=== PATIENT | female | born 1995 | race Caucasian/White ===

== ENCOUNTER → 2020-08-27 07:52 | Outpatient (CLI) | payer BC, SELFPAY ==
--- NOTE | 2020-08-27 07:54 | US_ITS ---
HISTORY: RUQ PAIN AFTER EATING X 3 MONTHS COMPARISON: None TECHNIQUE: Sonographic images of the right upper quadrant of the abdomen using grayscale and color Doppler imaging. Number of images including paperwork: 125 FINDINGS: LIVER: Unremarkable. Right lobe measures 16.8 cm. GALLBLADDER: No gallstones. No significant gallbladder wall thickening. Sonographic Mendoza's sign not elicited per the full stack software developer. BILE DUCTS: No significant biliary dilatation. CBD 1.6 mm. PANCREAS: Unremarkable visualized pancreas. Tail partially obscured by bowel gas. RIGHT KIDNEY: Unremarkable, 11.1 cm. AORTA: Unremarkable visualized portions of the aorta. INFERIOR VENA CAVA: Unremarkable visualized portions of the inferior vena cava. FREE FLUID: None detected. US/Gallbladder IMPRESSION: No acute abdominal abnormality is sonographically apparent. at 0126 Reported and signed by: Tarsha Knight MD Electronically Signed: Tarsha Knight MD at 1:26 EDT Tel , Service support ,
== END ==
PROVIDERS: PCP Nurse Practitioner; Referring Provider Nurse Practitioner; Visit Provider Nurse Practitioner
DX: R10.9 Unspecified abdominal pain (principal)
CPT/HCPCS: 76705

== ENCOUNTER → 2020-09-18 06:52 | Outpatient (CLI) | payer BC, SELFPAY ==
--- NOTE | 2020-09-18 06:54 | CT_ITS ---
STUDY: CT ABDOMEN AND PELVIS WITH CONTRAST REASON FOR EXAM: Female, 24 years old. RLQ/umbilical pain intermittently x 4 months, worse after eating. RADIATION DOSAGE (If Supplied By Facility): CTDIvol = ( 11.61 ) mGy, DLP = ( 820.70 ) mGycm TECHNIQUE: Transaxial images were obtained from the dome of the diaphragm to the symphysis pubis with oral contrast. Oral and amp; IV Readi-CAT and amp; 100mL Isovue-300 was administered. Sagittal and coronal images were reconstructed. Individualized dose optimization techniques were used for this CT. COMPARISON: None. FINDINGS: The visualized lung bases are unremarkable. The visualized portions of the heart are within normal limits. Normal liver. Normal gallbladder and extrahepatic biliary system. Normal spleen. Normal pancreas. Normal bilateral adrenal glands. Normal right kidney. Normal left kidney. Normal visualized stomach. Normal small intestine. Normal colon. The appendix is visualized and appears normal. Small lymph nodes are seen in the mesenteric fat in the right lower quadrant suggestive of a mesenteric adenitis. Normal abdominal aorta. Normal inferior vena cava. Normal retroperitoneum. Normal urinary bladder. Normal abdominal wall. Normal osseous structures. CT/Abdomen/Pelvis WITH Contrast IMPRESSION: Findings suggestive of mesenteric adenitis. Electronically Signed: Tan Clements, at 10:26 EST , Service support ,
== END ==
PROVIDERS: PCP Nurse Practitioner; Referring Provider Nurse Practitioner; Visit Provider Nurse Practitioner
DX: R10.9 Unspecified abdominal pain (principal)
CPT/HCPCS: 74177; Q9967

== ENCOUNTER → 2021-08-26 | Outpatient (CLI) | payer BC, SELFPAY | END | disposition home or self-care (01) | LOC: LABSPEC 15:43 | PROVIDERS: PCP Nurse Practitioner; Referring Provider Internal Medicine; Visit Provider Internal Medicine | DX: Z20.822 Contact with and (suspected) exposure to COVID-19 (principal) | CPT/HCPCS: 87635; U0005; U0003 ==

== ENCOUNTER → 2024-06-21 | Outpatient (CLI) | payer BC, SELFPAY ==
[2024-06-28 12:14] LABS: HPV Reflexed? NOT INDICATED
== END | disposition home or self-care (01) ==
LOC: LABSPEC 17:07
PROVIDERS: PCP Nurse Practitioner; Referring Provider Nurse Practitioner Women's Health; Visit Provider Nurse Practitioner Women's Health
DX: Z12.4 Encounter for screening for malignant neoplasm of cervix (principal)
CPT/HCPCS: 88175; G0145

== ENCOUNTER → 2025-09-07 | Outpatient (CLI) | payer BC, SELFPAY ==
[2025-09-07 13:21] LABS: hCG Titer Quant., Serum 22340 mIU/mL (<9 non-preg)
[2025-09-08 22:07] LABS: Chlamydia By Nucleic Acid AMP Negative (Negative); Gonococcus By Nucleic Acid AMP Negative (Negative)
== END | disposition home or self-care (01) ==
PROVIDERS: Advanced Practice Midwife; Visit Provider Obstetrics & Gynecology
DX: O20.0 Threatened abortion (principal); O09.90 Supervision of high risk pregnancy, unspecified, unspecified trimester; Z3A.00 Weeks of gestation of pregnancy not specified
CPT/HCPCS: 36415; 84702; 86850; 86900; 86901; 87491; 87591

== ENCOUNTER → 2025-09-09 | Outpatient (CLI) | payer BC, SELFPAY ==
--- OUTSIDE RECORDS SUMMARY | 2025-09-09 10:54 | XMS RPT_ITS | CCD ---
Author Organization [facility] Care Team Providers Care Psychiatrist Name Role Phone NO PCP Unavailable Unavailable Nancy Valerio Unavailable Manav Warner Unavailable Unavailable Unavailable Unavailable Nancy Valerio CNP Unavailable Manav Warner LPN Unavailable Unavailable TARIK Luke LPN Unavailable Unavailable Unavailable Unavailable Nancy Valerio Unavailable Dr. Saqib King Unavailable [phone] Slahandy MARTINN, Mary Carmen Unavailable Unavailable Frank SHERMAN Yue Unavailable Frank SHERMAN Yue Unavailable Rashaun Crowe MD Primary Care Provider Elmira White Attending Unavailabl brittani Chanel NP, Adriana Attending Unavailable Elmira White Attending UnavailElmira Oconnor Attending Unavailabl e Allergies Allergy Classification Reported Allergen(s) Allergy Type Date of Onset Reaction(s) Facility (12 sources) Codeine/Codeine Derivatives; Translations: [Codeine/Codein e Derivatives] Allergy to substance (finding) Vomiting [facility] Work Phone: (1 source) Codeine Drug Allergy 3 Vomiting [facility] Work Phone: (1 source) Codeine Drug Allergy 5 [facility] Repository Medications Completed/Discontinued Medications Medication Drug Class(es) Dates Sig (Normalized) Sig (Original) benzoyl peroxide 0.05 mg/mg / clindamycin 0.01 mg/mg topical gel (1 source) Lincosamide Antibacterial Start: 07-06-2019 End: 07-10-2022 clindamycin-benzoy l peroxide 1-5 % glwp APPLY TO AFFECTED AREAS.USE ON ACNE PRONE AREAS TWICE DAILY. 50 mL 5 07/06/2019 07/10/2022 Discontinued (Other) Comment on above: APPLY TO AFFECTED AR EAS.USE ON ACNE PRONE AREAS TWICE DAILY. Ethinyl Estradiol / Ferrous fumarate / Norethindrone (14 sources) Estrogen Start: 07-10-2022 Norethindron-Ethin yl Estrad-Fe (TILIA FE) 1-20(5)/1-30(7) /1mg-35mcg (9) Take 1 tablet by mouth once daily. 84 tablet 4 07/10/2022 Active Start: 07-05-2021 End: 07-10-2022 Norethindron-Ethinyl Estrad- Fe (TILIA FE) 1-20(5)/1-30(7) /1mg-35mcg (9) Take 1 tablet by mouth once daily. 3 Package 4 07/05/2021 07/10/2022 Discontinued Start: 08-21-2020 take 1 tablet by emelyn th once daily Tri-Legest Fe 1-20/1-30/1-35 MG-MCG Oral Tablet 1 (one) Tablet daily for 0 days Quantity: 30 {Tablet} Refills: 0 Ordered: 21-Aug-2020 Iman Nancy Iman Nancy Start : 21-Aug-2020 Active Start: 08-21-2020 take 1 tablet by emelyn th once daily Tri-Legest Fe 1-20/1-30/1-35 MG-MCG Oral Tablet 1 (one) Tablet daily for 0 days Quantity: 30 {Tablet} Refills: 0 Ordered: 21-Aug-2020 Nancy Valerio CNP, CNP Candice Start : 21-Aug-2020 Active Comment on above: Take 1 tablet by emelyn th once daily. ibuprofen 200 mg oral tablet (6 sources) Nonsteroidal Anti-inflammatory Drug Start: 09-19-2020 End: 09-26-2020 take 1 tablet by mouth twice daily Advil 200 MG Oral Tablet 1 (one) Tablet bid for 7 days Refills: 0 Ordered: 28-Sep-2020 Nancy Valerio Mary Start : 19-Sep-2020 End : 26-Sep-2020 Inactive Start: 11-25-2018 take 1 tablet by emelyn th every six hours as needed ibuprofen (MOTRIN) 400 mg tablet Take 1 tablet by mouth every 6 hours as needed for Pain. 60 tablet 1 11/25/2018 Active Comment on above: Take 1 tablet by emelyn th every 6 hours as needed for Pain. Problems Active Problems Problem Classification Problem Date Documented Da te Episodic/Chronic Abdominal pain (20 sources) Abdominal pain; Translations: [Abdominal pain] Resolved: 05-21-2022 08-21-2020 Episodic Comment on above: GB US normal, tried gluten free without change, stil with abd pain worse before a meal rt and left lower quad will rule out divertic and appendicitis Contraceptive and procreative management (5 sources) Patient encounter status; Translations: [Family planning] 09-19-2020 Episodic Hemorrhage during ; abruptio placenta; placenta previa (2 sources) Threatened ; Translations: [Threatened ] Onset: 09-07-2025 Episodic Hemorrhoids (8 sources) Hemorrhoids; Translations: [Hemorrhoid] 09-11-2020 Episodic Comment on above: saw SCHO[employer] MECHANIC at [facility] Immunizations and screening for infectious disease (13 sources) Contact with and (suspected) exposure to other viral communicable diseases; Translations: [Contact with or exposure to other viral diseases] Resolved: 05-21-2022 09-19-2020 Episodic Comment on above: future sister in law tested positive Sep 15 and Sep 1 Lymphadenitis (5 sources) Mesenteric lymphadenitis; Translations: [Mesenteric adenitis] 09-19-2020 Episodic Comment on above: pain after eating an d with stress since May x 4 month, Other complications of (1 source) Supervision of high risk , unspecified, unspecified trimester; Translations: [Supervision of high risk , unspecified, unspecified trimester] Onset: 09-07-2025 Episodic Other nutritional; endocrine; and metabolic disorders (20 sources) Body mass index 30+ - obesity; Translations: [BMI 30.0-30.9,adult] Resolved: 05-21-2022 08-21-2020 Chronic Residual codes; unclassified (7 sources) Non-smoker; Translations: [Nonsmoker] 09-19-2020 Episodic Past or Other Problems Problem Classification Problem Date Documented Da te Episodic/Chronic Unclassified (20 sources) Unclassified (20 sources) Patient encounter status; Translations: [Family planning] 08-21-2020 Unclassified (20 sources) Non-smoker; Translations: [Nonsmoker] 08-21-2020 Unclassified (20 sources) BMI 30.0-30.9,adult Unclassified (8 sources) Hemorrhoid Unclassified (5 sources) Mesenteric adenitis Unclassified (5 sources) Exposure to SARS virus Unclassified (4 sources) Exposure to COVID-19 virus Unclassified (3 sources) Well woman exam (Renamed from Encounter for well woman exam) NEGATED: Highlighted row has been ruled out!Unclassified (12 sources) Problem Onset: 08-21-2020 08-21-2020 Results Test Name Value Interpretation Reference Range Facility Eye Surgeon Office Visit Reporton 09-07-2025 Eye Surgeon Office Visit Report [facility]'s [address], [address] [place] [address] OFFICE VISIT Date of Service: 09/07/25 MR#: [id number] Acct: [id number] Name: ALYSSA RODRIGUEZ Rep #: [id number] : 1995 Provider: Dr. Elmira Huynh DO Age/Sex: 29/F Location: [facility] Status: Signed Intake Vital Signs 09/05/25 09:03 09/07/25 08:22 Height 5 ft 5 in 5 ft 5 in Weight: 175 lb 5 oz BMI 29.1 BP 120/84 H Blood Pressure Location Rt brachial Position Sitting Intake Visit Reasons: spotting in early /JV Furnace Helper Required: No Is patient in pain?: No Allergies codeine Adverse Reaction (Intermediate, Verified 09/07/25 08:23) VOMITING Medications ???Medication ???Instructions ???Recorded ???Confirmed ???Type multivit-min no.71-iron fum 28 cap PO 09/05/25 09/07/25 History mg-folate no.1 1 mg-dha 300 mg capsule (PNV-[place]) Post menopausal: No Patient : No : No PFSH Medical History Seasonal allergies Uncontrolled hypertension Chest pain, atypical Chest pain Hemorrhoids Surgical History S/P wisdom tooth extraction Family History Maternal Grandmother Myocardial infarction, Onset Age: 78 Hypertension Maternal Grandfather Kidney disease Hypertension Grandfather Heart disease, Onset Age: 89 Paternal-CHF Hypertension Paternal Grandmother Heart disease, Onset Age: 94 Paternal- CHF Hypertension Paternal Father Heart disease SVT Thyroid disorder hypothyroidism Hypertension Brother Hypertension Social History adopted: No household members: spouse housing: house number of children: 0 current occupational status: employed current occupation: Registered Nurse- [employer] current occupational exposures/hazards: No pets and animals: Yes pets and animals: dog(s) history of recent travel: No sexually active: Yes Smoking Status: Never smoker second hand exposure: No alcohol intake: current alcohol intake frequency: holidays/special occasions only Alcohol type: beer details: Not while substance use type: does not use well-balanced diet: daily or most days caffeine: Yes Type: coffee Number of servings: 1 eating out: 1-3 times/week during the past year weight has: decreased > 10 lbs what type of physical activity do you participate in: walking, yoga and other details: pilates frequency: daily duration: 30-45 minutes/day neena/sabianism: Presybeterian seatbelt use: always do you feel safe at home: Yes additional social history: - Asad- Alfonso- Marketing HPI spotting in early /JV Details: ALYSSA RODRIGUEZ is a 29 year old who presents for bleeding in early . Her last period was july 07 but she did not get a positive test until 1 week after her missed period. She denies cramping, only dark brown discharge. History 1 Elective abortions Hx Para 0 Spontaneous abortions Hx # Term Pregnancies Ectopic pregnancies Hx # Pregnancies Multiple births # of living children ROS Const ROS Unobtainable: All systems reviewed are unremarkable except as noted in H Resp Resp: Reports system reviewed and no additional complaints, except as documented; Denies cough GI GI: Reports as per HPI Psych Psych: Reports system reviewed and no additional complaints, except as documented Exam Const General: cooperative, healthy appearing, comfortable and no acute distress Resp Effort Inspection: normal respiratory effort General: bimanual renal exam normal bilaterally External Female Exam: normal appearance of the urethra Urethra: normal appearance of the urethra Speculum Exam - Vagina: normal appearance of the vagina Speculum Exam - Cervix: normal appearance of the cervix Bimanual Exam- Adnexa, other: normal adnexae and normal Pelvic Support: normal Other: scant brown discharge present. ultrasound shows a 6 week 1-5 day CRL with heart tones 125 Skin General: no rashes or lesions noted Psych Appearance: grossly normal Speech and Movement: speech and movement normal Coding Level of Care Code Off vis,new,level 4 Diagnoses Threatened O20.0 Assessment and Plan Assessment and Plan (1) Threatened : Status: Acute Plan: plan for serial quants and repeat ultrasound in one week. Orders: Orders hCG Titer Quant., Serum 1 Week O20.0 - Threatened hCG Titer Quant., Serum Today O20.0 - Threatened 09/07/25 0849 Date Elmira Gerber (more content not included)... Normal [facility] Type AND Screenon 09-07-2025 Ab SCREEN GEL Negative Normal [facility] Comment on above: Order Comment: PN Performed By: #### B TS #### [facility] [address] [place], [place], [address] hCG Titer Quant., Serumon HCG QUANT. 06633 mIU/mL High <9 non-preg [facility] Comment on above: Result Comment: Gest ational Age 0.2-1 Week: 5-50 mIU/mL 1-2 Weeks: 50-500 mIU/mL 2-3 Weeks: 100-5000 mIU/mL 3-4 Weeks: 500-10,000 mIU/mL 4-5 Weeks:1000-50,000 mIU/mL 5-6 Weeks: 10,000-100,000 mIU/mL 6-8 Weeks: 15,000-200,000 mIU/mL 2-3 Months:10,000-100,000 mIU/mL Performed By: #### L 700.8000 #### [facility] [address] [place], [address] Office Visit Reporton 2024 Office Visit Report [facility] [address] [place] [address] OFFICE VISIT Date of Service: 09/05/25 MR#: [id number] Acct: [id number] Patient: ALYSSA RODRIGUEZ Rep #: [id number] : 1995 Provider: Dr. Elmira Huynh, Age/Sex: 29/F Location: [facility] Status: Signed Intake Vital Signs 08/21/25 13:08 09/05/25 09:03 Height 5 ft 5 in 5 ft 5 in Blood Pressure Location Rt brachial Position Sitting Intake Visit Reasons: PNOB Vitals Education Furnace Helper Required: No Accompanied by: Is patient in pain?: No Allergies codeine Adverse Reaction (Intermediate, Verified 09/07/25 08:23) VOMITING Medications ???Medication ???Instructions ???Recorded ???Confirmed ???Type multivit-min no.71-iron fum 28 cap PO 09/05/25 09/07/25 History mg-folate no.1 1 mg-dha 300 mg capsule (PNV-[place]) Is last menstrual period known: Yes Last menstrual period: 07/07/25 Post menopausal: No Patient : Yes Nurse's Note: Pt here for secondary amenorrhea. Vitals WNL. PNOB questions completed. Problem list, allergies, and medications updated. First trimester ACOG education completed. Assessment and Plan Assessment and Plan Orders: Orders CBC W/Diff, Automated 09/05/25 O09.90 - Supervision of high risk , unspecified, unspecified trimester Type Screen Today O09.90 - Supervision of high risk , unspecified, unspecified trimester Rubella IgG 09/05/25 O09.90 - Supervision of high risk , unspecified, unspecified trimester Hepatitis C Antibody 09/05/25 O09.90 - Supervision of high risk , unspecified, unspecified trimester Hepatitis B Surface Antigen 09/05/25 O09.90 - Supervision of high risk , unspecified, unspecified trimester Culture, Urine 09/05/25 O09.90 - Supervision of high risk , unspecified, unspecified trimester Syphilis Antibodies 09/05/25 O09.90 - Supervision of high risk , unspecified, unspecified trimester Chlamydia/GC TERRENCE aptima Today O09.90 - Supervision of high risk , unspecified, unspecified trimester HIV 09/05/25 O09.90 - Supervision of high risk , unspecified, unspecified trimester DANIEL 09/05/25 O09.90 - Supervision of high risk , unspecified, unspecified trimester 09/07/25 1236 Date Elmira White DO [facility] Signature: Date (if applicable) [facility]: [facility] ([facility] ) ALYSSA DAMON ([id number]) 1995 F Date Time Provider Department 07/10/22 4:00 PM ORLY YIN During your visit today, we recorded the following information about you: Blood pressure Weight Height 122/78 86.2 kg 1.638 m Orly Yin APRN.LANE 07/10/2022 4:36 PM Signed Alyssa is a 26 year old who presents for an annual gynecologic exam without complaints. Menses: cycles every 21 days and 3-4 days of flow. 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 LMP: 06/27/2021, Drug Induced Amenorrhea Age at Menarche: Age at First : Age at Menopause: Artists' Model History Comments: Sexual Activity: Yes; Male Contraception: Pill PAST MEDICAL HISTORY Diagnosis Date Menarche age 13 PMH - PAST MEDICAL HISTORY OF 08/09/2009 normal color vision PAST SURGICAL HISTORY Procedure Laterality Date TOOTH EXTRACTION 2014 WISDOM TEETH FAMILY HISTORY Problem Relation Age of Onset Allergies Mother Allergies Father other (irregular heart) Father No Known Problems Sister No Known Problems Brother No Known Problems Brother Hypertension Maternal Grandmother Diabetes Maternal Grandfather adult onset Hypertension Paternal Grandmother Hypertension Paternal Grandfather SOCIAL HISTORY Social History Tobacco Use Smoking status: Never Smokeless tobacco: Never Vaping Use Vaping Use: Never used Substance Use Topics Alcohol use: No Drug use: No REVIEW OF SYSTEMS Abdomen: No abdominal pain, nausea, vomiting, diarrhea, or constipation. No bloating, early satiety, indigestion, or increased flatulence. Bladder: No dysuria, gross hematuria, urinary frequency, urinary urgency, or incontinence. Breast: No breast lumps, nipple d/c, overlying skin changes, redness or skin retraction. Allergies and current medication updated:Yes EXAM: LMP 06/27/2021 GENERAL: pleasant, female in no apparent distress HEENT: Normocephalic, atraumatic, mucus membranes moist, and no lesions NECK: Supple, full range of motion, no adenopathy, and thyroid normal DERMATOLOGY: Normal, without lesions, non-icteric, and non-hirsute BREAST: soft, non-tender, symmetric, no dominant mass, normal nipple-areolar complex, no lymphadenopathy, and no nipple discharge CHEST: Normal inspiratory effort ABDOMEN: soft, non-tender, and no masses PELVIC: external genitalia normal, normal Bartholin's glands, urethra, Delmita's glands, no vulvar lesions, no cervical lesions, good vaginal support, physiologic discharge present, normal appearing perineal body and perianal region BIMANUAL: uterus normal size, shape and consistency, no adnexal masses, and non-tender RECTOVAGINAL: deferred. NEURO: alert and oriented x3,exam grossly non-focal EXTREMITIES: normal ASSESSMENT/PLAN: 1) Health maintenance: Pap/HPV up to date. Mammogram starting age 40. Nutrition, exercise and routine health maintenance exams reviewed. 2) Contraception: combined hormonal contraceptives. Contraceptive options reviewed and information provided. 3) STD screening: Declined STD check. 4) Follow up one year or sooner as needed Orly Yin APRN.LANE Referring Provider: SELF [200] Allergies As of Date: 07/10/2022 Noted Allergy Reaction CODEINE 10/24/2013 11 - Vomiting Date Reviewed: 07/10/2022 Reviewed by: Orly Yin APRN.SENIOR PHYSICIAN - Fully Assessed Reason for Visit: Artists' Model Exam [50] Primary Visit Diagnosis:Encounter for gynecological examination (general) (routine) without abnormal findings [Z01.419] Other Visit Diagnosis:Encounter for surveillance of contraceptive pills [Z30.41] Order(s):Norethindron-E thinyl Estrad-Fe (TILIA FE) 1-20(5)/1-30(7) /1mg-35mcg (9)Take 1 tablet by mouth once daily.Disp: 84 tabletRfl: 4 Prescriptions as of 07/10/2022 - Norethindron-Ethinyl Estrad-Fe (TILIA FE) 1-20(5)/1-30(7) /1mg-35mcg (9) Take 1 tablet by mouth once daily. - ibuprofen (MOTRIN) 400 mg tablet Take 1 tablet by mouth every 6 hours as needed for Pain. Problem List As Of Date: 07/10/2022 (None) Prescriptions ordered this encounter Disp Refills Start End NORETHINDRONE-ETH. ESTRADIOL-IRON 1-* 84 t* 4 07/10/2022 Route: ORAL Sig: Take 1 tablet by mouth once daily. Medications Discontinued During This Encounter Prescriptions - Norethindron-Ethinyl Estrad-Fe (TILIA FE) 1-20(5)/1-30(7) /1mg-35mcg (9) (Discontinued) Take 1 tablet by mouth once daily. - clindamycin-benzoyl peroxide 1-5 % glwp (Discontinued) No sig reported Disposition: Return in 1 year (on 07/10/2023) for Annual Exam. Follow-up and Disposition History fo (more content not included)... Normal [facility] SARS-CoV-2 (COVID-19) RT-PCR on 04-23-2022 SARS-CoV-2 (COVID-19) RNA TERRENCE+probe Ql (Unsp spec) Positive Abnormal [facility] Comment on above: Result Comment: POSI TIVE: SARS-CoV-2 RNA was detected - Interpretation: A positive result indicates severe acute respiratory syndrome coronavirus 2 (SARS-CoV-2) RNA is present. Clinical correlation with patient history and other diagnostic information is necessary to determine patient infection status. Positive results do not rule out bacterial infection or co-infection with other viruses. - Method: Real-time reverse transcriptase PCR amplification for the qualitative detection of the ORF1 a/b non-structural region that is unique to SARS-CoV-2 and a conserved region in the structural protein envelope E-gene for gonzalez-Sarbecovirus detection using the Jorge SARS-CoV-2 assay on the Zoraida Jorge Hövding0 System. - Comment: This test has received FDA Emergency Use Authorization (EUA) and has been verified by [facility]. This test is only authorized for the duration of the public health emergency declaration and the circumstances that exist to justify the authorization of the emergency use of in vitro diagnostic tests for the detection of SARS-CoV-2 virus and/or diagnosis of COVID-19 infection under section 564(b)(1) of the Act, 21 U.S.C. 360bbb-3(b)(1), unless the authorization is terminated or revoked sooner. This test has not been FDA cleared or approved. Results should be used in conjunction with clinical findings, and should not form the sole basis for a diagnosis or treatment decision. - Fact Sheets for this EUA can be found at the following links: For Healthcare Providers: www.fda.gov/media/321049/download For Patients: www.fda.gov/media/006318/download - Reference Value: Negative Performed By: #### C OVID #### [address] [id number] JORGE SARS CoV-2 RT PCR Detected Normal [facility] Comment on above: Performed By: #### C OVID #### [address] [id number] FECAL OCCULT- Tubes sent jaswinder e ([id number])on 09-11-2020 Hemoglobin.gastro intestinal Ql (Stl) Negative Normal [facility] Work Phone: Hemoglobin.gastro intestinal Ql (Stl) Negative Normal [facility]; [facility] Work Phone: CBC, Platelets & Auto Diff ( [phone])Ordered By: Microcomputer Support Specialist on 08-21-2020 Basophils (Bld) [#/Vol] 0.1 {x10E3/uL} Normal 0.0-0.2 [facility] Work Phone: Comment on above: PATIENT NOT FASTINGP ERFORMED BY: CB [facility] [id number] [place] [id number] Basophils (Bld) [#/Vol] 0.1 10*3/uL Normal 0.0-0.2 [facility]; [facility] Work Phone: Comment on above: PATIENT NOT FASTINGP ERFORMED BY: CB [facility] [id number]Dublin [place] [id number] Basophils/100 WBC (Bld) 1 % Normal [facility] Work Phone: Comment on above: PATIENT NOT FASTINGP ERFORMED BY: CB [facility] [id number] [place] [id number] Eosinophils (Bld) [#/Vol] 0.2 {x10E3/uL} Normal 0.0-0.4 [facility] Work Phone: Comment on above: PATIENT NOT FASTINGP ERFORMED BY: CB [facility] [id number] [place] [id number] Eosinophils (Bld) [#/Vol] 0.2 10*3/uL Normal 0.0-0.4 [facility]; [facility] Work Phone: Comment on above: PATIENT NOT FASTINGP ERFORMED BY: CB [facility] [id number] [place] [id number] Eosinophils/100 WBC (Bld) 2 % Normal [facility] Work Phone: Comment on above: PATIENT NOT FASTINGP ERFORMED BY: CB [facility] [id number] [place] [id number] Erythrocyte distribution width (RBC) [Ratio] 11.8 % Normal 11.7-15.4 [facility] Work Phone: Comment on above: PATIENT NOT FASTINGP ERFORMED BY: LINNETTE LabConubia HawkinsVuwkon8[address]bl[address] [place] [id number] Hematocrit (Bld) [Volume fraction] 40.7 % Normal 34.0-46.6 [facility] Work Phone: Comment on above: PATIENT NOT FASTINGP ERFORMED BY: CB [facility] Lepyee7[address]bl[address] [place] [id number] Hemoglobin (Bld) [Mass/Vol] 13.7 g/dL Normal 11.1-15.9 [facility] Work Phone: Comment on above: PATIENT NOT FASTINGP ERFORMED BY: LINNETTE [facility] Ogkvdi8[address]Duin [place] [id number] Immature granulocytes (Bld) [#/Vol] 0.1 {x10E3/uL} Normal 0.0-0.1 [facility] Work Phone: Comment on above: PATIENT NOT FASTINGP ERFORMED BY: [facility] Yibnwb06[address]Duin [place] [id number] Immature granulocytes (Bld) [#/Vol] 0.1 10*3/uL Normal 0.0-0.1 [facility]; [facility] Work Phone: Comment on above: PATIENT NOT FASTINGP ERFORMED BY: CB [facility] Aqmnyh98[address] RoadDorothea Dix Hospitalin [place] [id number] Immature granulocytes/100 WBC (Bld) 1 % Normal [facility] Work Phone: Comment on above: PATIENT NOT FASTINGP ERFORMED BY: CB [facility] Lfexjw99[address]Dublin [place] [id number] Lymphocytes (Bld) [#/Vol] 3.0 {x10E3/uL} Normal 0.7-3.1 [facility] Work Phone: Comment on above: PATIENT NOT FASTINGP ERFORMED BY: CB [facility] Osxlxg1276 [address] [place] [id number] Lymphocytes (Bld) [#/Vol] 3.0 10*3/uL Normal 0.7-3.1 [facility]; [facility] Work Phone: Comment on above: PATIENT NOT FASTINGP ERFORMED BY: LINNETTE [facility] Bkftvd89[address] [place] [id number] Lymphocytes/100 WBC (Bld) 33 % Normal [facility] Work Phone: Comment on above: PATIENT NOT FASTINGP ERFORMED BY: CB [facility] Bedfty7657 [address]Dublin [place] [id number] MCH (RBC) [Entitic mass] 28.8 pg Normal 26.6-33.0 [facility] Work Phone: Comment on above: PATIENT NOT FASTINGP ERFORMED BY: [facility] Gwxtxd[address] [facility] [place] [id number] MCHC (RBC) [Mass/Vol] 33.7 g/dL Normal 31.5-35.7 [facility] Work Phone: Comment on above: PATIENT NOT FASTINGP ERFORMED BY: [facility] Yorers8400 [address]Dublin [place] [id number] MCV (RBC) [Entitic vol] 86 fL Normal 79-97 [facility] Work Phone: Comment on above: PATIENT NOT FASTINGP ERFORMED BY: [facility] Ijltry7648 [address] RoadDublin [place] [id number] Monocytes (Bld) [#/Vol] 0.6 {x10E3/uL} Normal 0.1-0.9 [facility] Work Phone: Comment on above: PATIENT NOT FASTINGP ERFORMED BY: CB [facility] Hnooqy2504 [address] RoadDublin [place] [id number] Monocytes (Bld) [#/Vol] 0.6 10*3/uL Normal 0.1-0.9 [facility]; [facility] Work Phone: Comment on above: PATIENT NOT FASTINGP ERFORMED BY: [facility] Iefsib7378 [address]Dublin [place] [id number] Monocytes/100 WBC (Bld) 7 % Normal [facility] Work Phone: Comment on above: PATIENT NOT FASTINGP ERFORMED BY: CB [facility] Jzevxx8888 [address] RoadDublin [place] [id number] Neutrophils (Bld) [#/Vol] 5.3 {x10E3/uL} Normal 1.4-7.0 [facility] Work Phone: Comment on above: PATIENT NOT FASTINGP ERFORMED BY: CB [facility] Druhvi9760 [address]Dublin [place] [id number] Neutrophils (Bld) [#/Vol] 5.3 10*3/uL Normal 1.4-7.0 [facility]; [facility] Work Phone: Comment on above: PATIENT NOT FASTINGP ERFORMED BY: CB [facility] Cctbcf8362 [address]Dublin [place] [id number] Neutrophils/100 WBC (Bld) 56 % Normal [facility] Work Phone: Comment on above: PATIENT NOT FASTINGP ERFORMED BY: CB [facility] Kdrewb0887 [address]Dublin [place] [id number] Platelets (Bld) [#/Vol] 376 {x10E3/uL} Normal 150-450 [facility] Work Phone: Comment on above: PATIENT NOT FASTINGP ERFORMED BY: CB [facility] Vcjdcu4250 [address]Dublin [place] [id number] Platelets (Bld) [#/Vol] 376 10*3/uL Normal 150-450 [facility]; [facility] Work Phone: Comment on above: PATIENT NOT FASTINGP ERFORMED BY: CB [facility] Adafbq4223 [address] RoadDublin [place] [id number] RBC (Bld) [#/Vol] 4.76 {x10E6/uL} Normal 3.77-5.28 [facility] Internal Medicine Work Phone: Comment on above: PATIENT NOT FASTINGP ERFORMED BY: CB [facility] Wuvfme2473 [address]Dublin [place] [id number] RBC (Bld) [#/Vol] 4.76 10*6/uL Normal 3.77-5.28 [facility]; [facility] Work Phone: Comment on above: PATIENT NOT FASTINGP ERFORMED BY: CB [facility] Boupkm6000 [address]Dublin [place] [id number] WBC (Bld) [#/Vol] 9.2 {x10E3/uL} Normal 3.4-10.8 [facility] Internal Medicine Work Phone: Comment on above: PATIENT NOT FASTINGP ERFORMED BY: CB [facility] Walhdx4622 [address]Dublin [place] [id number] WBC (Bld) [#/Vol] 9.2 10*3/uL Normal 3.4-10.8 [facility] Internal [facility]; [facility] Work Phone: Comment on above: PATIENT NOT FASTINGP ERFORMED BY: CB [facility] Ckpxlv7916 [address] Roadblin [place] [id number] Metabolic Panel, Comprehensi ve ([id number])Ordered By: Microcomputer Support Specialist on 08-21-2020 Albumin [Mass/Vol] 4.3 g/dL Normal 3.9-5.0 [facility] Internal Medicine Work Phone: Comment on above: PATIENT NOT FASTINGP ERFORMED BY: CB [facility] Osesni5838 [address] RoadDublin [place] [id number] Albumin/Globulin [Mass ratio] 1.4 {ratio} Normal 1.2-2.2 [facility] Work Phone: Comment on above: PATIENT NOT FASTINGP ERFORMED BY: CB [facility] Aseifz5198 [address] RoadDublin [place] [id number] ALP [Catalytic activity/Vol] 100 [iU]/L Normal 39-117 [facility] Work Phone: Comment on above: PATIENT NOT FASTINGP ERFORMED BY: CB [facility] Ubhwej8968 [address] RoadDublin [place] [id number] ALP [Catalytic activity/Vol] 100 U/L Normal 39-117 [facility]; [facility] Work Phone: Comment on above: PATIENT NOT FASTINGP ERFORMED BY: LINNETTE [facility] Gcfpfm3759 [address] RoadDublin [place] [id number] ALT [Catalytic activity/Vol] 16 [iU]/L Normal 0-32 [facility] Work Phone: Comment on above: PATIENT NOT FASTINGP ERFORMED BY: CB [facility] Gwfpun7267 [address]Dublin [place] [id number] ALT [Catalytic activity/Vol] 16 U/L Normal 0-32 [facility]; [facility] Work Phone: Comment on above: PATIENT NOT FASTINGP ERFORMED BY: CB [facility] Gfousf0098 [address] RoadDublin [place] [id number] AST [Catalytic activity/Vol] 18 [iU]/L Normal 0-40 [facility] Work Phone: Comment on above: PATIENT NOT FASTINGP ERFORMED BY: LINNETTE [facility] Rtsitk6106 [address] RoadDublin [place] [id number] AST [Catalytic activity/Vol] 18 U/L Normal 0-40 [facility]; [facility] Work Phone: Comment on above: PATIENT NOT FASTINGP ERFORMED BY: LINNETTE [facility] Jlvmrk9914 [address]Dublin [place] [id number] Bilirubin [Mass/Vol] 0.3 mg/dL Normal 0.0-1.2 [facility] Work Phone: Comment on above: PATIENT NOT FASTINGP ERFORMED BY: CB [facility] Futpzd4960 [address] RoadDublin [place] [id number] Calcium [Mass/Vol] 9.7 mg/dL Normal 8.7-10.2 [facility] Work Phone: Comment on above: PATIENT NOT FASTINGP ERFORMED BY: LINNETTE [facility] Oonohk0658 [address] RoadDublin [place] [id number] Chloride [Moles/Vol] 98 mmol/L Normal 96-106 [facility] Work Phone: Comment on above: PATIENT NOT FASTINGP ERFORMED BY: CB [facility] Gdqtzw1135 [address] RoadDublin [place] [id number] CO2 [Moles/Vol] 22 mmol/L Normal 20-29 [facility] Internal Medicine Work Phone: Comment on above: PATIENT NOT FASTINGP ERFORMED BY: [facility] [facility] [id number] Creatinine [Mass/Vol] 0.71 mg/dL Normal 0.57-1.00 [facility] Work Phone: Comment on above: PATIENT NOT FASTINGP ERFORMED BY: [facility]Co[facility] HospitalUsmmzb45[address] [facility] [id number] GFR/1.73 sq M predicted among blacks CKD-EPI (S/P/Bld) [Vol rate/Area] 139 mL/min/1.73 Normal [facility] Work Phone: Comment on above: PATIENT NOT FASTINGP ERFORMED BY: [facility] [id number] GFR/1.73 sq M predicted among non-blacks CKD-EPI (S/P/Bld) [Vol rate/Area] 120 mL/min/1.73 Normal [facility] Work Phone: Comment on above: PATIENT NOT FASTINGP ERFORMED BY: [facility] [id number] Globulin (S) [Mass/Vol] 3.1 g/dL Normal 1.5-4.5 [facility] Work Phone: Comment on above: PATIENT NOT FASTINGP ERFORMED BY: [facility] [id number] Glucose [Mass/Vol] 89 mg/dL Normal 65-99 [facility] Work Phone: Comment on above: PATIENT NOT FASTINGP ERFORMED BY: [facility] [id number] Potassium [Moles/Vol] 4.7 mmol/L Normal 3.5-5.2 [facility] Work Phone: Comment on above: PATIENT NOT FASTINGP ERFORMED BY: CB [facility] Ialgot5377 [address] RoadDublin [place] [id number] Protein [Mass/Vol] 7.4 g/dL Normal 6.0-8.5 [facility] Work Phone: Comment on above: PATIENT NOT FASTINGP ERFORMED BY: CB [facility] Dqppio3802 [address] [place] [id number] Sodium [Moles/Vol] 137 mmol/L Normal 134-144 [facility] Work Phone: Comment on above: PATIENT NOT FASTINGP ERFORMED BY: CB [facility] Zopqlr1885 [address] RoadD[address] [place] [id number] Urea nitrogen [Mass/Vol] 9 mg/dL Normal 6-20 [facility] Work Phone: Comment on above: PATIENT NOT FASTINGP ERFORMED BY: CB [facility] Skcxzi8237 [address] RoadDublin [place] [id number] Urea nitrogen/Creatini ne [Mass ratio] 13 mg/mg Normal 9-23 [facility] Work Phone: Comment on above: PATIENT NOT FASTINGP ERFORMED BY: CB [facility] Kvnref1951 [address] [place] [id number] Urinalysis, Office ([id number])Or dered By: Manav Warner on 08-21-2020 Bilirubin Ql (U) Negative Normal Comprehe nsive [facility] Work Phone: Bilirubin Ql (U) Negative Normal Compre[facility] ns[facility]; [facility] Work Phone: Glucose Test strip (U) [Mass/Vol] Negative Normal [facility] Work Phone: Glucose Test strip (U) [Mass/Vol] Negative Normal [facility]; [facility] Work Phone: Hemoglobin Ql (U) Negative Normal Compreh ensive [facility] Work Phone: Hemoglobin Ql (U) Negative Normal Compreh ensive [facility]; [facility] Work Phone: Ketones Ql (U) Negative Normal Comprehens tamara [facility] Work Phone: Ketones Ql (U) Negative Normal Comprehens [facility]; [facility] Work Phone: Leukocyte esterase Test strip Ql (U) Trace Normal [facility] Work Phone: Nitrite Ql (U) Negative Normal Comprehens [facility] Work Phone: Nitrite Ql (U) Negative Normal Comprehens [facility]; [facility] Work Phone: pH (U) 6 [pH] Abnormal [facility] Work Phone: Protein Ql (U) Negative Normal Comprehens [facility] Work Phone: Protein Ql (U) Negative Normal Comprehens [facility]; [facility] Work Phone: Specific gravity (U) [Rel density] 1.020 1 Normal [facility] Work Phone: Urobilinogen (24H U) [Mass/Time] Normal Normal [facility] Work Phone: Vital Signs Date Time Vital Sign Value Performing Clinician Facility 07-10-2022 16:07-0400 Body height 163.8 cm Orly Annamaria MOTOR VEHICLES INSPECTOR.SENIOR PHYSICIAN Work Phone: [facility] 07-10-2022 16:07-0400 Body weight 86.18 kg Orly Annamaria MOTOR VEHICLES INSPECTOR.SENIOR PHYSICIAN Work Phone: [facility] 07-10-2022 16:07-0400 Diastolic blood pressure 78 mm[Hg] Orly [place] MOTOR VEHICLES INSPECTOR.SENIOR PHYSICIAN Work Phone: [facility] 07-10-2022 16:07-0400 Systolic blood pressure 122 mm[Hg] Orly [place] MOTOR VEHICLES INSPECTOR.SENIOR PHYSICIAN Work Phone: [facility] 05-21-2022 16:16-0400 Body height 166.37 cm Mary Carmen Bates [employer] [facility]; [facility] Work Phone: 05-21-2022 16:16-0400 Body mass index (BMI) [Ratio] 30.81 kg/m2 Mary Carmen Bates [employer] [facility]; [facility] Work Phone: 05-21-2022 16:16-0400 Body surface area Derived from formula 1.94 m2 Mary Carmen Slarb [employer] [facility]; [facility] Work Phone: 05-21-2022 16:16-0400 Body temperature 97.6 [degF] Mary Carmen Slarb [employer]TAIN [facility]; [facility] Work Phone: 05-21-2022 16:16-0400 Body weight 85.28 kg Mary Carmen Slarb [employer]TAIN [facility]; [facility] Work Phone: 05-21-2022 16:16-0400 Diastolic blood pressure 78 mm[Hg] Mary Carmen Slarb [employer] [facility]; [facility] Work Phone: Comment on above: Patient Position: Sitting; Cuff Location : Left Arm; Cuff Size: Standard 05-21-2022 16:16-0400 Heart rate 66 /min Mary Carmen Slarb [employer] [facility]; [facility] Work Phone: Comment on above: Pattern: Regular 05-21-2022 16:16-0400 Respiratory rate 16 /min Mary Carmen Slarb [employer] [facility]; [facility] Work Phone: Comment on above: Pattern: Unlabored 05-21-2022 16:16-0400 SaO2% (BldA) [Mass fraction] 99 % Mary Carmen Slarb [employer] [facility]; [facility] Work Phone: Comment on above: Room air 05-21-2022 16:16-0400 Systolic blood pressure 122 mm[Hg] Mary Carmen Slarb [employer] [facility]; [facility] Work Phone: Comment on above: Patient Position: Sitting; Cuff Location : Left Arm; Cuff Size: Standard 09-19-2020 10:56-0500 BMI (Body Mass Index) 30.65 kg/m2 Manav Warner LPN [facility] Work Phone: 09-19-2020 10:56-0500 Body weight 84.84 kg Manav Warner LPN [facility] Work Phone: 09-19-2020 10:56-0500 BSA (Body Surface Area) 1.93 m2 Manav Timmy FARR [facility] Internal Medicine Work Phone: 09-19-2020 10:56-0500 Height 166.37 cm Manav Timmy [employer] [facility] Work Phone: 09-11-2020 08:13-0400 BMI (Body Mass Index) 30.65 kg/m2 Manav Timmy FARR [facility] Work Phone: 09-11-2020 08:13-0400 Body Temperature 97.6 [degF] Manav Warner [facility] Internal Medicine Work Phone: Comment on above: Method: Infrared 09-11-2020 08:13-0400 Body weight 84.84 kg Manav Timmy FARR [facility] Work Phone: 09-11-2020 08:13-0400 BP Diastolic 76 mm[Hg] Manav Warner [employer] [facility] Work Phone: Comment on above: Patient Position: Sitting; Cuff Location : Left Arm; Cuff Size: Standard 09-11-2020 08:13-0400 BP Systolic 122 mm[Hg] Manav Timmy [facility] Internal Medicine Work Phone: Comment on above: Patient Position: Sitting; Cuff Location : Left Arm; Cuff Size: Standard 09-11-2020 08:13-0400 BSA (Body Surface Area) 1.93 m2 Manav Timmy [employer] [facility] Work Phone: 09-11-2020 08:13-0400 Height 166.37 cm Manav Warner [employer] [facility] Work Phone: 09-11-2020 08:13-0400 Pulse (Heart Rate) 96 /min Manav Warner LPN [facility] Work Phone: Comment on above: Pattern: Regular 09-11-2020 08:13-0400 Pulse Oximetry 97 % Nancy Valerio [facility] Work Phone: Comment on above: Room air 09-11-2020 08:13-0400 Respiratory Rate 16 /min Manav Warner LPN [facility] Work Phone: Comment on above: Pattern: Unlabored 09-11-2020 08:13-0400 SaO2% (BldA) [Mass fraction] 97 % Manav Warner LPN [facility]; [facility] Work Phone: Comment on above: Room air 08-21-2020 09:45-0400 BMI (Body Mass Index) 30.65 kg/m2 Manav Warner LPN [facility] Work Phone: 08-21-2020 09:45-0400 Body Temperature 97.3 [degF] Manav Warner LPN [facility] Work Phone: Comment on above: Method: Infrared 08-21-2020 09:45-0400 Body weight 84.85 kg Manav Warner LPN [facility] Work Phone: 08-21-2020 09:45-0400 BP Diastolic 86 mm[Hg] Manav Warner LPN [facility] Work Phone: Comment on above: Patient Position: Sitting; Cuff Location : Left Arm; Cuff Size: Standard 08-21-2020 09:45-0400 BP Systolic 122 mm[Hg] Manav Warner LPN [facility] Work Phone: Comment on above: Patient Position: Sitting; Cuff Location : Left Arm; Cuff Size: Standard 08-21-2020 09:45-0400 BSA (Body Surface Area) 1.93 m2 Manav Warner LPN [facility] Work Phone: 08-21-2020 09:45-0400 Height 166.37 cm Manav Warner LPN [facility] Work Phone: 08-21-2020 09:45-0400 Pulse (Heart Rate) 94 /min Manav Warner LPN [facility] Work Phone: Comment on above: Pattern: Regular 08-21-2020 09:45-0400 Pulse Oximetry 97 % Nancy Valerio [facility] Work Phone: Comment on above: Room air 08-21-2020 09:45-0400 Respiratory Rate 16 /min Manav Warner LPN [facility] Work Phone: Comment on above: Pattern: Unlabored 08-21-2020 09:45-0400 SaO2% (BldA) [Mass fraction] 97 % Manav Warner [employer] [facility]; [facility] Work Phone: Comment on above: Room air Encounters Encounter Date Encounter Type Care Provider Facility Start: 09-07-2025 End: 09-07-2025 ambulatory Elmira White Facility:[facility] Start: 09-05-2025 End: 09-05-2025 ambulatory Elmira White Facility:[facility] Start: 08-22-2025 ambulatory Adriana Chanel [employer] Facil ity:[facility] Start: 07-10-2022 End: 07-10-2022 Patient encounter procedure Orly Yin MOTOR VEHICLES INSPECTOR.SENIOR PHYSICIAN Work Phone: OB/Gynecology Comment on above: Encounter for gyneco logical examination (general) (routine) without abnormal findings (Primary Dx); Encounter for surveillance of contraceptive pills Start: 07-10-2022 End: 07-10-2022 Patient encounter status Orly Yin MOTOR VEHICLES INSPECTOR.SENIOR PHYSICIAN Work Phone: OB/Gynecology Start: 05-21-2022 End: 05-22-2022 Periodic preventive med est patient 18-39 yrs Nancy Valerio Work Phone: [facility] Start: 05-21-2022 Review Nancy Valerio Work Phone: [facility] Start: 08-26-2021 End: 08-26-2021 Lab Order Nancy Valeroi SENIOR PHYSICIAN Work Phone: [facility] Start: 09-19-2020 End: 09-19-2020 Office outpatient visit 15 minutes Nancy Chan [facility] Start: 09-11-2020 End: 09-11-2020 Office outpatient visit 15 minutes Nancy Chan [facility] Start: 09-11-2020 Review Nancy Grimm [facility] Start: 08-21-2020 End: 08-21-2020 Office outpatient new 45 minutes Nancy Chan [facility] Start: 03-18-2018 Ambulatory NO PCP [facility] Patient encounter procedure Mary Carmen Bates [employer] [facility]; [facility] Work Phone: Patient encounter procedure Yue Marie SENIOR PHYSICIAN Work Phone: [facility]; [facility] Work Phone: Comment on above: benign, f/u in one y ear and prnbreast exam and pap/pelvic exam performed by corporate investigator Procedures Date Procedure Procedure Detail Performing Clinician Start: 04-25-2021 End: 04-25-2021 Chest PA and Lateral Comments: See Note; NOTES: [facility] Radiology [address] [place] [address] Chest PA and Lateral MR#: [id number] Acct: [id number] Name: ALYSSA DAMON Rep #: [id number] : 1995 F 25 From: Tan daley MD PCP: MÓNICA Mays Status: DEP AMB Study: Chest PA and Lateral Date of Exam: 04/25/21 Exam# [id number] Ordering Dr: Dylan Liang PA STUDY: X-RAY CHEST REASON FOR EXAM: Female, 25 years old. Chest tightness. Anxiety. TECHNIQUE: PA and lateral views of the chest. COMPARISON: None. FINDINGS: The lungs are clear and expanded. There is no demonstrated pleural abnormality. Normal size heart. Normal mediastinum and sammy. Normal visualized pulmonary arteries. Normal visualized aortic arch and descending thoracic aorta. Normal visualized thoracic spine. Normal visualized ribs, clavicles, and shoulders. There is no demonstrated abnormality of the visualized soft tissue structures of the upper abdomen. RAD/Chest PA and Lateral IMPRESSION: Normal x-ray examination of the chest. Electronically Signed: Tan Clements MD at 12:55 EDT , Service support , CC: MÓNICA Valerio; ALEXANDRA Liang Assistant Dean Of Students: Signed Nancy Valerio [facility] Work Phone: Start: 04-25-2021 End: 04-25-2021 Urgent Care Visit Report Comments: See Note; NOTES: [facility] [address] [place] [id number] OFFICE VISIT Date of Service: 04/25/21 MR#: [id number] Acct: [id number] Name: ALYSSA DAMON Rep #: [id number] : 1995 Provider: ALEXANDRA arvizu Age/Sex: 25/F Location: [facility] Status: Signed Intake Vital Signs 04/25/21 12:13 Height 5 ft 5 in Weight: 192 lb BMI 31.9 BP 140/92 H Blood Pressure Location Lt brachial Position Sitting Respiration 16 Pulse 98 Pulse Source Monitor Temp 98.0 F Temp Source Temporal Pulse Oximetry (%) 97 Oxygen Delivery Method room air Intake Visit Reasons: CHEST TIGHTNESS Allergies codeine Adverse Reaction (Intermediate, Verified 04/25/21 12:14) VOMITING Medications norethindrone-eth. estradiol-iron 1-20 (5)/1-30(7)/1mg-35mcg(9) tablet 1 tab PO DAILY 04/25/21 [History Confirmed 04/25/21] PFSH Medical History (Updated 04/25/21 @ 14:26 by ALEXANDRA Marshall) Chest pain Chest pain, atypical Hemorrhoids Uncontrolled hypertension Family History (Updated 04/25/21 @ 12:18 by Evelyne Sheth, KAIN) Other Heart disease Social History (Updated 04/25/21 @ 12:19 by Evelyne Sheth, RN) Smoking Status: Never smoker HPI HPI Details: ALYSSA DAMON, is a 25 F who presents to the office today for initial evaluation approximately 2-week history of persistent chest tightness worse every morning upon awakening, all eviated somewhat as her workday progresses. No complaints of fever, chills, sweats, cough. She notes no history of snoring and no history of coughing in the middle the night/waking up with acid taste in her mouth, abdominal pain, chest pressure/shortness of breath/dyspnea on exertion or PND/orthopnea or syncope/near syncope. She does note having a history of chronic waxing and waning anxiety for several years, with symptoms most prominent over the last 2 weeks. She has taken no dbei-nhj-jppxawe products to assist with symptoms. She notes no other associated symptoms no other alleviating or aggravating factors. ROS Const Constitutional: Positive for other (As above) Exam Const General: cooperative, healthy appearing, comfortable and no acute distress Nutritional Appearance: well nourished Orientation: alert, awake and oriented x3 HENMT Head: normal to inspection Ears: hearing grossly normal bilaterally, external ears normal, TM's normal bilaterally and EAC's normal Nose: external nose normal, nares normal, septum normal and no nasal discharge Face and sinus: normal facial exam and face symmetric Mouth: oral mucosae normal, lip normal, tongue normal and moist mucous membranes Throat: posterior oropharynx normal, tonsils normal, uvula midline and no postnasal drainage Eyes General: appearance normal, both eyes and all related structures Neck Neck: normal visual inspection, full ROM, no lymphadenopathy, no meningeal signs and supple Neck mass: No Thyroid: thyroid normal Lymphatic: no lymphadenopathy noted Chest Chest palpation inspection: normal inspection of the chest Resp Effort Inspection: normal respiratory effort, able to speak in complete sentences, symmetric chest movement and no cough Auscultation: Bilateral: Clear to Auscultation Cardio Palpation: normal PMI Rate: regular rate Rhythm: regular rhythm Heart Sounds: S1 normal, S2 normal, no gallops, no murmurs and no rubs Pulses: radial pulses present GI Inspection: normal to inspection Palpation: soft, not firm, no guarding and nontender General: No CVA tenderness Skin General: no rashes or lesions noted Neuro General: patient alert, patient awake, patient oriented x3 and gait normal Cognition: normal cognition Speech: speech normal Gait: normal gait Motor: muscle tone normal throughout Sensory Exam: no sensory deficits noted Extrem General: normal to inspection Psych Appearance: grossly normal Mental Status: mental status grossly normal Mood: congruent mood Affect: normal affect Speech and Movement: speech and movement normal (mildly hurried speech appreciated) Attitude: cooperative Thought Process: normal Thought Content: normal Judgment: judgment good Coding Level of Care Code Off vis,new,level 4 Diagnoses Chest pain, atypical R07.89 Uncontrolled hypertension I10 Assessment and Plan Assessment and Plan (1) Chest pain, atypical: Status: Acute (2) Uncontrolled hypertension: Status: Acute Plan - Dylan MORRIS, PA: Reviewed today's twelve-lead ECG and chest x-ray results with patient in office today. Discussed options, including potentially starting with an SSRI to address symptoms as described which she is refusing at this time, stating she would prefer to talk with her PCP about this before initiating any medication regimen for any purposes whatsoever. Regarding uncontrolled hypertension, patient informed to address this with her PCP. Follow-up with PCP first available appointment to address today's examination findings/recommendations, or report to ED sooner should symptoms only worsen or other concerns develop. Patient states acknowledging understanding all the above. This note was generated with iKONVERSE dictation software. It may contain incorrect words, spelling, and punctuation that were not noted in checking the note before signing. Plan Details Other Orders: Orders: 12 Lead EKG performed by [facility] Today R07.9 Chest PA and Lateral Today R07.9 04/25/21 1428 <Electronically signed by Dylan MORRIS> Date Dylan MORRIS Cosigner Signature: Date (if applicable) CC: Nancy Valerio SENIOR PHYSICIAN Work Phone: Start: 09-18-2020 End: 09-18-2020 Abdomen/Pelvis WITH Contrast Comments: See Note; NOTES: [facility] Services [address] [place] [id number] Abdomen/Pelvis WITH Contrast MR#: [id number] Acct: [id number] Name: ALYSSA DAMON Rep #: [id number] : 1995 F 24 From: Tan daley MD PCP: MÓNICA Mays Status: REG CLI Study: Abdomen/Pelvis WITH Contrast Date of Exam: 02/02 Exam# [id number] Ordering Dr: Nancy Valerio NP [employer] MECHANIC[employer] STUDY: CT ABDOMEN AND PELVIS WITH CONTRAST REASON FOR EXAM: Female, 24 years old. RLQ/umbilical pain intermittently x 4 months, worse after eating. RADIATION DOSAGE (If Supplied By Facility): CTDIvol = ( 11.61 ) mGy, DLP = ( 820.70 ) mGycm TECHNIQUE: Transaxial images were obtained from the dome of the diaphragm to the symphysis pubis with oral contrast. Oral and amp; IV Readi-CAT and amp; 100mL Isovue-300 was administered. Sagittal and coronal images were reconstructed. Individualized dose optimization techniques were used for this CT. COMPARISON: None. FINDINGS: The visualized lung bases are unremarkable. The visualized portions of the heart are within normal limits. Normal liver. Normal gallbladder and extrahepatic biliary system. Normal spleen. Normal pancreas. Normal bilateral adrenal glands. Normal right kidney. Normal left kidney. Normal visualized stomach. Normal small intestine. Normal colon. The appendix is visualized and appears normal. Small lymph nodes are seen in the mesenteric fat in the right lower quadrant suggestive of a mesenteric adenitis. Normal abdominal aorta. Normal inferior vena cava. Normal retroperitoneum. Normal urinary bladder. Normal abdominal wall. Normal osseous structures. CT/Abdomen/Pelvis WITH Contrast IMPRESSION: Findings suggestive of mesenteric adenitis. Electronically Signed: Tan Clements, at 10:26 EST , Service support , CC: MÓNICA Valerio Assistant Dean Of Students: Signed Nancy Valerio Work Phone: Start: 08-27-2020 End: 08-28-2020 Gallbladder Comments: See Note; NOTES: [facility] [address] [place] [address] Gallbladder MR#: [id number] Acct: [id number] Name: ALYSSA DAMON Rep #: [id number] : 1995 F 24 From: Tarsha monreal MD PCP: Nancy Ciesa, SCHOOL BUS MECHANIC-C Status: REG CLI Study: Gallbladder Date of Exam: 08/27/20 Exam# [id number] Ordering Dr: Nancy Valerio NP SCHOOL BUS MECHANIC-C HISTORY: RUQ PAIN AFTER EATING X 3 MONTHS COMPARISON: None TECHNIQUE: Sonographic images of the right upper quadrant of the abdomen using grayscale and color Doppler imaging. Number of images including paperwork: 125 FINDINGS: LIVER: Unremarkable. Right lobe measures 16.8 cm. GALLBLADDER: No gallstones. No significant gallbladder wall thickening. Sonographic Mendoza's sign not elicited per the vehicle upholsterer. BILE DUCTS: No significant biliary dilatation. CBD 1.6 mm. PANCREAS: Unremarkable visualized pancreas. Tail partially obscured by bowel gas. RIGHT KIDNEY: Unremarkable, 11.1 cm. AORTA: Unremarkable visualized portions of the aorta. INFERIOR VENA CAVA: Unremarkable visualized portions of the inferior vena cava. FREE FLUID: None detected. US/Gallbladder IMPRESSION: No acute abdominal abnormality is sonographically apparent. at 0126 Reported and signed by: Tarsha Knight MD Electronically Signed: Tarsha Knight MD at 1:26 EDT Tel , Service support , CC: MÓNICA Valerio Assistant Dean Of Students: Signed Nancy Valerio Work Phone: Start: 04-15-2017 Adult depression screening assessment Orly Yin APRN.[facility] Work Phone: [place] Teeth extraction- 2013 Manav Warner [place] Teeth extraction- 2013 Manav Warner [place] Teeth extraction- 2013 Manav Timmy [place] Teeth extraction- 2013 Mary Carmen Bates LPN Plan of Treatment Date Care Activity Detail Author Start: 07-05-2024 PAP TESTING PAP TESTING [facility] Start: 07-17-2022 Influenza vaccination INFLUENZA (#1) [facility] Start: 05-21-2022 Procedure Education Eprescribed prescriptions (G8553) [facility] Work Phone: Start: 05-21-2022 Provider Instructions for Treatment [facility] Work Phone: Start: 08-26-2021 Iaadiadoo influenza 2019 Novel Coronavirus (COVID-19), TERRENCE (00319) [facility]; [facility] Work Phone: Start: 09-19-2020 Procedure Education Eprescribed prescriptions (G8553) [facility] Work Phone: Start: 09-11-2020 Procedure Education Eprescribed prescriptions (G8553) [facility] Work Phone: Start: 09-11-2020 Provider Instructions for Treatment [facility] Work Phone: Start: 09-11-2020 Blood occult fecal hgb deter ia qual feces 1-3 FECAL OCCULT- Tubes sent home (38999) [facility] Work Phone: Start: 08-21-2020 Patient Education Celiac Disease and the Gluten-Free Diet: diet [facility] Work Phone: Start: 08-21-2020 Procedure Education Eprescribed prescriptions (G8553) [facility] Work Phone: Start: 08-21-2020 Provider Instructions for Treatment Follow up in 3 weeks [facility] Work Phone: Start: 08-21-2020 Blood count complete auto&auto difrntl wbc CBC, Platelets & Auto Diff (99298) [facility] Work Phone: Start: 08-21-2020 Comprehensive metabolic panel Metabolic Panel, Comprehensive (33868) [facility] Work Phone: Start: 08-09-2019 Urine microalbumin profile DTAP,TDAP,TD (3 - Td or Tdap) [facility] Start: 04-15-2018 Adult depression screening assessment DEPRESSION SCREENING [facility] Start: 2014 HEPATITIS C SCREENING HEPATITIS C SCREENING [facility] Start: 2014 HIV SCREENING HIV SCREENING [facility] Start: 2010 PEDS TO ADULT TRANSITION ANNUAL ASSESSMENT PEDS TO ADULT TRANSITION ANNUAL ASSESSMENT [facility] Start: 2008 PEDS TO ADULT TRANSITION INITIAL DISCUSSION PEDS TO ADULT TRANSITION INITIAL DISCUSSION [facility] Work Phone: [facility]: Immunizations Immunization Date Immunization Notes Care Provider Flor mccall 12-16-2020 COVID-19 vaccine, fu ll dose (MODERNA) Orly [place] MOTOR VEHICLES INSPECTOR.SENIOR PHYSICIAN Work Phone: [facility] Work Phone: 11-18-2020 COVID-19 vaccine, fu ll dose (MODERNA) Orly Annamaria MOTOR VEHICLES INSPECTOR.SENIOR PHYSICIAN Work Phone: [facility] Work Phone: 08-30-2018 Influenza, injectabl e, Madin Romney Canine Kidney, preservative free, quadrivalent Orly [place] MOTOR VEHICLES INSPECTOR.SENIOR PHYSICIAN Work Phone: [facility] Work Phone: 08-16-2017 influenza virus vaccine, unspecified formulation Orly Annamaria MOTOR VEHICLES INSPECTOR.SENIOR PHYSICIAN Work Phone: [facility] 10-31-2015 influenza, live, intranasal, quadrivalent Orly Annamaria MOTOR VEHICLES INSPECTOR.SENIOR PHYSICIAN Work Phone: [facility] 10-17-2014 human papilloma viru s vaccine, quadrivalent Orly [place] MOTOR VEHICLES INSPECTOR.SENIOR PHYSICIAN Work Phone: [facility] 10-17-2014 influenza, live, intranasal, quadrivalent Orly Annamaria MOTOR VEHICLES INSPECTOR.SENIOR PHYSICIAN Work Phone: [facility] 04-17-2014 human papilloma viru s vaccine, quadrivalent Orly Annamaria MOTOR VEHICLES INSPECTOR.SENIOR PHYSICIAN Work Phone: [facility] 11-22-2013 human papilloma viru s vaccine, quadrivalent Orly Annamaria MOTOR VEHICLES INSPECTOR.SENIOR PHYSICIAN Work Phone: [facility] 10-15-2013 influenza virus vaccine, live, attenuated, for intranasal use Orly [place] MOTOR VEHICLES INSPECTOR.SENIOR PHYSICIAN Work Phone: [facility] Work Phone: 10-15-2013 Meningococcal, MCV4, unspecified conjugate formulation(groups A, C, Y and W-135) Orly [place] MOTOR VEHICLES INSPECTOR.SENIOR PHYSICIAN Work Phone: [facility] Work Phone: 10-11-2012 influenza virus vaccine, live, attenuated, for intranasal use Orly Annamaria MOTOR VEHICLES INSPECTOR.SENIOR PHYSICIAN Work Phone: [facility] 09-09-2010 influenza virus vaccine, live, attenuated, for intranasal use Orly Annamaria MOTOR VEHICLES INSPECTOR.SENIOR PHYSICIAN Work Phone: [facility] 09-09-2010 varicella virus vaccine Afshin e Annamaria MOTOR VEHICLES INSPECTOR.SENIOR PHYSICIAN Work Phone: [facility] 08-09-2009 influenza virus vaccine, live, attenuated, for intranasal use Orly [place] MOTOR VEHICLES INSPECTOR.[facility] Work Phone: [facility] Work Phone: 08-09-2009 Meningococcal, MCV4, unspecified conjugate formulation(groups A, C, Y and W-135) Orly [place] MOTOR VEHICLES INSPECTOR.[facility] Work Phone: [facility] Work Phone: 08-09-2009 tetanus toxoid, redu rome diphtheria toxoid, and acellular pertussis vaccine, adsorbed Orly Annamaria MOTOR VEHICLES INSPECTOR.[facility] Work Phone: [facility] Work Phone: 06-15-2002 diphtheria, tetanus toxoids and acellular pertussis vaccine Orly Annamaria MOTOR VEHICLES INSPECTOR.[facility] Work Phone: [facility] Work Phone: 10-25-2001 measles, mumps and rubella virus vaccine Orly Annamaria MOTOR VEHICLES INSPECTOR.SENIOR PHYSICIAN Work Phone: [facility] Work Phone: 10-25-2001 poliovirus vaccine, inactivated Orly [place] MOTOR VEHICLES INSPECTOR.SENIOR PHYSICIAN Work Phone: [facility] Work Phone: 09-27-1999 influenza virus vaccine, unspecified formulation Orly [place] MOTOR VEHICLES INSPECTOR.SENIOR PHYSICIAN Work Phone: [facility] Work Phone: 10-02-1998 influenza virus vaccine, unspecified formulation Orly Annamaria MOTOR VEHICLES INSPECTOR.SENIOR PHYSICIAN Work Phone: [facility] Work Phone: 10-02-1998 varicella virus vaccine Afshin e [place] MOTOR VEHICLES INSPECTOR.SENIOR PHYSICIAN Work Phone: [facility] Work Phone: 08-11-1998 influenza virus vaccine, unspecified formulation Orly [place] MOTOR VEHICLES INSPECTOR.SENIOR PHYSICIAN Work Phone: [facility] Work Phone: 01-01-1998 Tetramune Orly [place] MOTOR VEHICLES INSPECTOR.[facility] Work Phone: [facility] Work Phone: 10-02-1997 measles, mumps and rubella virus vaccine Orly [place] MOTOR VEHICLES INSPECTOR.SENIOR PHYSICIAN Work Phone: [facility] Work Phone: 10-02-1997 poliovirus vaccine, inactivated Orly [place] MOTOR VEHICLES INSPECTOR.SENIOR PHYSICIAN Work Phone: [facility] Work Phone: 10-02-1997 trivalent poliovirus vaccine, live, oral Orly Annamaria MOTOR VEHICLES INSPECTOR.SENIOR PHYSICIAN Work Phone: [facility] Work Phone: 03-31-1997 hepatitis B vaccine, pediatric or pediatric/adolescent dosage Orly [place] MOTOR VEHICLES INSPECTOR.SENIOR PHYSICIAN Work Phone: [facility] Work Phone: 03-31-1997 Tetramune Orly [place] MOTOR VEHICLES INSPECTOR.SENIOR PHYSICIAN Work Phone: [facility] Work Phone: 01-30-1997 poliovirus vaccine, inactivated Orly [place] MOTOR VEHICLES INSPECTOR.SENIOR PHYSICIAN Work Phone: [facility] Work Phone: 01-30-1997 Tetramune Orly [place] MOTOR VEHICLES INSPECTOR.SENIOR PHYSICIAN Work Phone: [facility] Work Phone: 1995 hepatitis B vaccine, pediatric or pediatric/adolescent dosage Orly Annamaria MOTOR VEHICLES INSPECTOR.SENIOR PHYSICIAN Work Phone: [facility] Work Phone: 1995 poliovirus vaccine, inactivated Orly Annamaria MOTOR VEHICLES INSPECTOR.SENIOR PHYSICIAN Work Phone: [facility] Work Phone: 1995 Tetramune Orly [place] MOTOR VEHICLES INSPECTOR.SENIOR PHYSICIAN Work Phone: [facility] Work Phone: 1995 hepatitis B vaccine, pediatric or pediatric/adolescent dosage Orly [place] MOTOR VEHICLES INSPECTOR.SENIOR PHYSICIAN Work Phone: [facility] Work Phone: Payers Date Payer Category Payer Self-pay 2025 Unknown [id number] 2018 Unknown Unknown [id number] Unknown [id number] Unknown [id number] [id number] Unknown [id number] [id number] Social History Date Type Detail Facility Alcohol Use: Alcohol Use: [facility] Work Phone: Caffeine Use Caffeine Use [facility] Work Phone: Comment on above: 1 per day Living Situation: Living Situation: [facility] Work Phone: Alcohol Use: Alcohol Use: [facility] Work Phone: Living Situation: Living Situation: [facility] Work Phone: Start: 07-10-2022 Tobacco smoking stat RUSTIS Never smoked tobacco [facility] Start: 07-10-2022 Tobacco use and exposure Smokeless tobacco non-user [facility] Start: 07-10-2022 Alcohol intake Current non-dr extension forester of alcohol (finding) [facility] Start: 06-29-2020 History SDOH Social Connections Phone 5 [facility] Start: 06-29-2020 History SDOH Social Connections Jewish 3 [facility] Start: 06-29-2020 History SDOH Social Connections Membership 2 [facility] Start: 06-29-2020 History SDOH Social Connections Meetings 1 [facility] Start: 06-29-2020 History SDOH Social Connections Living 7 [facility] Start: 06-29-2020 History SDOH Physica l Activity MPS 6 [facility] Start: 06-29-2020 Education 17 [facility] Start: 1995 Sex Assigned At Not on file [facility] Progress note 07-10-2022 Note Date & Type Note Facility 07-10-2022 Note HNO ID: [id number] Author: Orly Yin APRN.SENIOR PHYSICIAN Service: ? Author Type: Nurse Practitioner Type: Progress Notes Filed: 07/10/2022 4:36 PM Note Text: Alyssa is a 26 year old who presents for an annual gynecologic exam without complaints. Menses: cycles every 21 days and 3-4 days of flow. 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 LMP: 06/27/2021, Drug Induced Amenorrhea Age at Menarche: Age at First : Age at Menopause: [employer] History Comments: Sexual Activity: Yes; Male Contraception: Pill PAST MEDICAL HISTORY Diagnosis Date Menarche age 13 PMH - PAST MEDICAL HISTORY OF 08/09/2009 normal color vision PAST SURGICAL HISTORY Procedure Laterality Date TOOTH EXTRACTION 2014 WISDOM TEETH FAMILY HISTORY Problem Relation Age of Onset Allergies Mother Allergies Father other (irregular heart) Father No Known Problems Sister No Known Problems Brother No Known Problems Brother Hypertension Maternal Grandmother Diabetes Maternal Grandfather adult onset Hypertension Paternal Grandmother Hypertension Paternal Grandfather SOCIAL HISTORY Social History Tobacco Use Smoking status: Never Smokeless tobacco: Never Vaping Use Vaping Use: Never used Substance Use Topics Alcohol use: No Drug use: No REVIEW OF SYSTEMS Abdomen: No abdominal pain, nausea, vomiting, diarrhea, or constipation. No bloating, early satiety, indigestion, or increased flatulence. Bladder: No dysuria, gross hematuria, urinary frequency, urinary urgency, or incontinence. Breast: No breast lumps, nipple d/c, overlying skin changes, redness or skin retraction. Allergies and current medication updated:Yes EXAM: LMP 06/27/2021 GENERAL: pleasant, female in no apparent distress HEENT: Normocephalic, atraumatic, mucus membranes moist, and no lesions NECK: Supple, full range of motion, no adenopathy, and thyroid normal DERMATOLOGY: Normal, without lesions, non-icteric, and non-hirsute BREAST: soft, non-tender, symmetric, no dominant mass, normal nipple-areolar complex, no lymphadenopathy, and no nipple discharge CHEST: Normal inspiratory effort ABDOMEN: soft, non-tender, and no masses PELVIC: external genitalia normal, normal Bartholin's glands, urethra, Delmita's glands, no vulvar lesions, no cervical lesions, good vaginal support, physiologic discharge present, normal appearing perineal body and perianal region BIMANUAL: uterus normal size, shape and consistency, no adnexal masses, and non-tender RECTOVAGINAL: deferred. NEURO: alert and oriented x3,exam grossly non-focal EXTREMITIES: normal ASSESSMENT/PLAN: 1) Health maintenance: Pap/HPV up to date. Mammogram starting age 40. Nutrition, exercise and routine health maintenance exams reviewed. 2) Contraception: combined hormonal contraceptives. Contraceptive options reviewed and information provided. 3) STD screening: Declined STD check. 4) Follow up one year or sooner as needed Orly Yin APRN.[facility] History of Present illness Narrative 07-10-2022 Orly Yin APRN.[facility] - 07/10/2022 4:04 PM EDT Note Date & Type Note Facility 07-10-2022 History of Presen t illness Narrative Alyssa is a 26 year old who presents for an annual gynecologic exam without complaints. Menses: cycles every 21 days and 3-4 days of flow. 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 LMP: 06/27/2021, Drug Induced Amenorrhea Age at Menarche: Age at First : Age at Menopause: [employer] History Comments: Sexual Activity: Yes; Male Contraception: Pill PAST MEDICAL HISTORY Diagnosis Date Menarche age 13 PMH - PAST MEDICAL HISTORY OF 08/09/2009 normal color vision PAST SURGICAL HISTORY Procedure Laterality Date TOOTH EXTRACTION 2014 WISDOM TEETH FAMILY HISTORY Problem Relation Age of Onset Allergies Mother Allergies Father other (irregular heart) Father No Known Problems Sister No Known Problems Brother No Known Problems Brother Hypertension Maternal Grandmother Diabetes Maternal Grandfather adult onset Hypertension Paternal Grandmother Hypertension Paternal Grandfather SOCIAL HISTORY Social History Tobacco Use Smoking status: Never Smokeless tobacco: Never Vaping Use Vaping Use: Never used Substance Use Topics Alcohol use: No Drug use: No REVIEW OF SYSTEMS Abdomen: No abdominal pain, nausea, vomiting, diarrhea, or constipation. No bloating, early satiety, indigestion, or increased flatulence. Bladder: No dysuria, gross hematuria, urinary frequency, urinary urgency, or incontinence. Breast: No breast lumps, nipple d/c, overlying skin changes, redness or skin retraction. Allergies and current medication updated:Yes EXAM: LMP 06/27/2021 GENERAL: pleasant, female in no apparent distress HEENT: Normocephalic, atraumatic, mucus membranes moist, and no lesions NECK: Supple, full range of motion, no adenopathy, and thyroid normal DERMATOLOGY: Normal, without lesions, non-icteric, and non-hirsute BREAST: soft, non-tender, symmetric, no dominant mass, normal nipple-areolar complex, no lymphadenopathy, and no nipple discharge CHEST: Normal inspiratory effort ABDOMEN: soft, non-tender, and no masses PELVIC: external genitalia normal, normal Bartholin's glands, urethra, Delmita's glands, no vulvar lesions, no cervical lesions, good vaginal support, physiologic discharge present, normal appearing perineal body and perianal region BIMANUAL: uterus normal size, shape and consistency, no adnexal masses, and non-tender RECTOVAGINAL: deferred. NEURO: alert and oriented x3,exam grossly non-focal EXTREMITIES: normal ASSESSMENT/PLAN: 1) Health maintenance: Pap/HPV up to date. Mammogram starting age 40. Nutrition, exercise and routine health maintenance exams reviewed. 2) Contraception: combined hormonal contraceptives. Contraceptive options reviewed and information provided. 3) STD screening: Declined STD check. 4) Follow up one year or sooner as needed Orly Yin APRN.CNP documented in this encounter [facility] Evaluation note Note Date & Type Note Facility Evaluation note Diagnosis Encounter for gynecological examination (general) (routine) without abnormal findings- Primary Encounter for surveillance of contraceptive pills Surveillance of previously prescribed contraceptive pill documented in this encounter [facility] Instructions Note Date & Type Note Facility Instructions Name How to access health information online Indication:Nonsmoker Start:19-Sep-2020 Instruction Type:Patient Education How to access health information online - Detail Indication:Nonsmoker Start:19-Sep-2020 Instruction Type:Patient Education Patient Instructions Indication:Nonsmoker Start:19-Sep-2020 Instruction Type:Provider Instructions for Treatment How to access health information online Indication:Nonsmoker Start: 0 Instruction Type:Patient Education How to access health information online - Detail Indication:Nonsmoker Start: 0 Instruction Type:Patient Education Patient Instructions Indication:Nonsmoker Start: 0 Instruction Type:Provider Instructions for Treatment How to access health information online Indication:Abdominal pain Start:21-Aug-2020 Instruction Type:Patient Education How to access health information online - Detail Indication:Abdominal pain Start:21-Aug-2020 Instruction Type:Patient Education Patient Instructions Indication:Abdominal pain Start:21-Aug-2020 Instruction Type:Provider Instructions for Treatment [facility] Work Phone: Instructions Note Date & Type Note Facility Instructions Name Patient Instructions Indication:Well woman exam (Renamed from Encounter for well woman exam) Start:21-May-2022 Instruction Type:Provider Instructions for Treatment How to Access Health Information Online using Patient Portal and 3rd [employer] Apps Indication:Well woman exam (Renamed from Encounter for well woman exam) Start:21-May-2022 Instruction Type:Patient Education How to access health information online Indication:Nonsmoker Start:19-Sep-2020 Instruction Type:Patient Education How to access health information online - Detail Indication:Nonsmoker Start:19-Sep-2020 Instruction Type:Patient Education Patient Instructions Indication:Nonsmoker Start:19-Sep-2020 Instruction Type:Provider Instructions for Treatment How to access health information online Indication:Nonsmoker Start: 0 Instruction Type:Patient Education How to access health information online - Detail Indication:Nonsmoker Start: 0 Instruction Type:Patient Education Patient Instructions Indication:Nonsmoker Start: 0 Instruction Type:Provider Instructions for Treatment How to access health information online Indication:Abdominal pain Start:21-Aug-2020 Instruction Type:Patient Education How to access health information online - Detail Indication:Abdominal pain Start:21-Aug-2020 Instruction Type:Patient Education Patient Instructions Indication:Abdominal pain Start:21-Aug-2020 Instruction Type:Provider Instructions for Treatment [facility]; [facility] Work Phone: Instructions Note Date & Type Note Facility Instructions Name Patient Instructions Indication:Well woman exam (Renamed from Encounter for well woman exam) Start:21-May-2022 Instruction Type:Provider Instructions for Treatment How to Access Health Information Online using Patient Portal and Order Mapper [employer] Apps Indication:Well woman exam (Renamed from Encounter for well woman exam) Start:21-May-2022 Instruction Type:Patient Education How to access health information online Indication:Nonsmoker Start:19-Sep-2020 Instruction Type:Patient Education How to access health information online - Detail Indication:Nonsmoker Start:19-Sep-2020 Instruction Type:Patient Education Patient Instructions Indication:Nonsmoker Start:19-Sep-2020 Instruction Type:Provider Instructions for Treatment How to access health information online Indication:Nonsmoker Start: 0 Instruction Type:Patient Education How to access health information online - Detail Indication:Nonsmoker Start: 0 Instruction Type:Patient Education Patient Instructions Indication:Nonsmoker Start: 0 Instruction Type:Provider Instructions for Treatment How to access health information online Indication:Abdominal pain Start:21-Aug-2020 Instruction Type:Patient Education How to access health information online - Detail Indication:Abdominal pain Start:21-Aug-2020 Instruction Type:Patient Education Patient Instructions Indication:Abdominal pain Start:21-Aug-2020 Instruction Type:Provider Instructions for Treatment [facility]; [facility] Work Phone: Summary Purpose Family History No Family History Records FoundUnknown Family Member Name Dates Details Grandparent Comments:Kidney disease and HTN Status:Active Unknown Family Member Name Dates Details Grandparent Comments:Kidney disease and HTN Status:Active Unknown Family Member Name Dates Details Grandparent Comments:Kidney disease and HTN Status:Active Unknown Family Member Name Dates Details Grandparent Comments:Kidney disease and HTN Status:Active Unknown Family Member Name Dates Details Grandparent Comments:Kidney disease and HTN Status:Active Unknown Family Member Name Dates Details Grandparent Comments:Kidney disease and HTN Status:Active Unknown Family Member Name Dates Details Grandparent Comments:Kidney disease and HTN Status:Active Unknown Family Member Name Dates Details Grandparent Comments:Kidney disease and HTN Status:Active Unknown Family Member Name Dates Details Grandparent Comments:Kidney disease and HTN Status:Active Advance Directives No Advanced Directives Records FoundNo Advanced Directives Records FoundNo Advanced Directives Records FoundNo Advanced Directives Records Found Instructions Name Dates Details How to access health informa tion online Indication:Abdominal pain Start:21-Aug-2020 Instruction Type:Patient Edu cation How to access health informa tion online - Detail Indication:Abdominal pain Start:21-Aug-2020 Instruction Type:Patient Edu cation Patient Instructions Indication:Abdominal pain Start:21-Aug-2020 Instruction Type:Provider Instructions for Treatment Name Dates Details How to access health informa tion online Indication:Abdominal pain Start:21-Aug-2020 Instruction Type:Patient Edu cation How to access health informa tion online - Detail Indication:Abdominal pain Start:21-Aug-2020 Instruction Type:Patient Edu cation Patient Instructions Indication:Abdominal pain Start:21-Aug-2020 Instruction Type:Provider Instructions for Treatment Name Dates Details How to access health informa tion online Indication:Nonsmoker Start:11-Sep-2020 Instruction Type:Patient Education How to access health informa tion online - Detail Indication:Nonsmoker Start:11-Sep-2020 Instruction Type:Patient Education Patient Instructions Indication:Nonsmoker Start:11-Sep-2020 Instruction Type:Provider Instructions for Treatment How to access health informa tion online Indication:Abdominal pain Start:21-Aug-2020 Instruction Type:Patient Education How to access health informa tion online - Detail Indication:Abdominal pain Start:21-Aug-2020 Instruction Type:Patient Education Patient Instructions Indication:Abdominal pain Start:21-Aug-2020 Instruction Type:Provider Instructions for Treatment Name Dates Details How to access health informa tion online Indication:Nonsmoker Start:11-Sep-2020 Instruction Type:Patient Education How to access health informa tion online - Detail Indication:Nonsmoker Start:11-Sep-2020 Instruction Type:Patient Education Patient Instructions Indication:Nonsmoker Start:11-Sep-2020 Instruction Type:Provider Instructions for Treatment How to access health informa tion online Indication:Abdominal pain Start:21-Aug-2020 Instruction Type:Patient Education How to access health informa tion online - Detail Indication:Abdominal pain Start:21-Aug-2020 Instruction Type:Patient Education Patient Instructions Indication:Abdominal pain Start:21-Aug-2020 Instruction Type:Provider Instructions for Treatment Name Dates Details How to access health informa tion online Indication:Nonsmoker Start:19-Sep-2020 Instruction Type:Patient Education How to access health informa tion online - Detail Indication:Nonsmoker Start:19-Sep-2020 Instruction Type:Patient Education Patient Instructions Indication:Nonsmoker Start:19-Sep-2020 Instruction Type:Provider Instructions for Treatment How to access health informa tion online Indication:Nonsmoker Start:11-Sep-2020 Instruction Type:Patient Education How to access health informa tion online - Detail Indication:Nonsmoker Start:11-Sep-2020 Instruction Type:Patient Education Patient Instructions Indication:Nonsmoker Start:11-Sep-2020 Instruction Type:Provider Instructions for Treatment How to access health informa tion online Indication:Abdominal pain Start:21-Aug-2020 Instruction Type:Patient Education How to access health informa tion online - Detail Indication:Abdominal pain Start:21-Aug-2020 Instruction Type:Patient Education Patient Instructions Indication:Abdominal pain Start:21-Aug-2020 Instruction Type:Provider Instructions for Treatment Name Dates Details How to access health informa tion online Indication:Nonsmoker Start:11-Sep-2020 Instruction Type:Patient Education How to access health informa tion online - Detail Indication:Nonsmoker Start:11-Sep-2020 Instruction Type:Patient Education Patient Instructions Indication:Nonsmoker Start:11-Sep-2020 Instruction Type:Provider Instructions for Treatment How to access health informa tion online Indication:Abdominal pain Start:21-Aug-2020 Instruction Type:Patient Education How to access health informa tion online - Detail Indication:Abdominal pain Start:21-Aug-2020 Instruction Type:Patient Education Patient Instructions Indication:Abdominal pain Start:21-Aug-2020 Instruction Type:Provider Instructions for Treatment Additional Source Comments INFORMATION SOURCE (unrecogn ized section and content) DATE CREATED AUTHOR 05/06/2018 [facility] DATE CREATED AUTHOR AUTHOR'S ORGANIZ ATION 04/24/2022 [facility] DATE CREATED AUTHOR AUTHOR'S ORGANIZ ATION 07/13/2022 [facility] DATE CREATED AUTHOR AUTHOR'S ORGANIZ ATION 09/08/2025 [facility] Source Comments (unrecognize d section and content) In the event this informatio n is protected by the Federal Confidentiality of Alcohol and Drug Abuse Patient Records regulations: The Federal rules restrict any use of the information to criminally investigate or prosecute any alcohol or drug abuse patient.[facility] Reason for Visit (unrecogniz ed section and content) Reason Comments [employer] Care Teams (unrecognized sec tion and content) Psychiatrist Relationship Specialty Start Date End Date Rashaun Crowe MD [address] [place], [place] [address] PCP - General 09/09/02 FOR RECORDS PERTAINING TO PATIENTS WHO ARE OR HAVE BEEN ENROLLED IN A CHEMICAL DEPENDENCY/SUBSTANCEABUSE PROGRAM, SOME INFORMATION MAY BE OMITTED. This clinical summary was aggregated from multiple sources. Caution should be exercised in using it in the provision of clinical care. This summary normalizes information from multiple sources, and as a consequence, information in this document may materially change the coding, format and clinical context of patient data. In addition, data may be omitted in some cases. CLINICAL DECISIONS SHOULD BE BASED ON THE PRIMARY CLINICAL RECORDS. The [facility]. provides no warranty or guarantee of the accuracy or completeness of information in this document.
[2025-09-09 12:23] LABS: hCG Titer Quant., Serum 29827 mIU/mL (<9 non-preg)
== END | disposition home or self-care (01) ==
LOC: LAB 10:50
PROVIDERS: PCP Nurse Practitioner Family; Referring Provider Obstetrics & Gynecology; Visit Provider Obstetrics & Gynecology
DX: O20.0 Threatened abortion (principal); Z3A.00 Weeks of gestation of pregnancy not specified
CPT/HCPCS: 36415; 84702

== ENCOUNTER → 2025-10-10 | Outpatient (CLI) | payer BC, SELFPAY ==
[2025-10-10 12:32] LABS: Hematocrit 37.8 % (37-47); Hemoglobin 13.2 g/dL (12.0-15.0); Immature Granulocytes Count 0.040 X10^3/uL (0.0-0.0); Mean Corp Hgb Conc 34.9 g/dL (32-36); Mean Corpuscular Volume 84.9 fL (81-99); Mean Platelet Vol. 9.6 fl (6.2-12.0); NRBC Flagged by Analyzer 0 % (0-5); Platelet Count 278 K/mm3 (150-450); RBC Distribution Width CV 12.0 % (11.6-14.6); RBC Distribution Width SD 37.4 fl (35.1-43.9); Red Blood Count 4.45 M/mm3 (4.2-5.4); White Blood Count 10.2 K/mm3 (4.4-11.0)
[2025-10-10 13:25] LABS: HIV Nonreactive (Nonreactive); Hepatitis B Surface Antigen Nonreactive (Nonreactive); Hepatitis C Antibody Nonreactive (Nonreactive); Syphilis Antibodies Nonreactive (Nonreactive)
== END | disposition home or self-care (01) ==
PROVIDERS: PCP Nurse Practitioner Family; Visit Provider Advanced Practice Midwife
DX: O09.90 Supervision of high risk pregnancy, unspecified, unspecified trimester (principal); Z3A.00 Weeks of gestation of pregnancy not specified
CPT/HCPCS: 36415; 85025; 86703; 86762; 86780; 86803; 86850; 86900; 86901; 87340